=== PATIENT | female | born 1990 | race African-American/Black ===

== ENCOUNTER 2016-09-29 11:39 | Emergency (ER) | payer OTHER | END 2016-09-29 14:00 | disposition home or self-care (01) | LOC: ER 11:39 | DX: K08.89 Other specified disorders of teeth and supporting structures (principal); F17.200 Nicotine dependence, unspecified, uncomplicated; Z88.0 Allergy status to penicillin; Z88.5 Allergy status to narcotic agent; Z88.8 Allergy status to other drugs, medicaments and biological substances | CPT/HCPCS: 99282 ==